=== PATIENT | male | born 1965 | race Caucasian/White ===

== ENCOUNTER 2017-01-18 15:33 | Emergency (ER) | payer BC ==
[~2017-01-18 15:33] MED LIST: ASPI325T PO; ASPI81TA82 PO; DILTSR120 PO; METO25TA6 PO; MULTCAP13 PO
[2017-01-18 15:40] VITALS: BP 136/86; PULSE 152; RESP 18; TEMP 98.3; O2SAT 96
[2017-01-18] MEDS ORDERED: ASPI-516 CHEW (15:40)
[2017-01-18] MEDS ORDERED: DILT240C44 PO (15:40)
[2017-01-18 15:45] VITALS: BP 120/87; PULSE 144; RESP 18; O2SAT 96
[2017-01-18] MEDS ORDERED: DILTIAZEM HCL 25 MG/5 ML VIAL IV ONE (15:45)
--- NOTE | 2017-01-18 15:46 | PD ---
HPI Chief Complaint: Cardiac Complaint Time Seen by Provider: 15:43 Travel History International Travel<30 days: No Contact w/Intl Traveler<30days: No Traveled to known affect area: No History of Present Illness HPI This 51-year-old male is complaining of palpitations. His palpitations started about 2 hours ago while he was in [place]. He has a history of paroxysmal atrial fibrillation and is on oral Cardizem. He says he took it yesterday around 9:00 at night. He is not having any chest pain. He is having palpitations. He is not short of breath. He has been having this for the past few years. He says he gets it every 6 months or so. He took an aspirin this afternoon PFSH Past Medical History Atrial Fibrillation: Yes Cancer: No Cardiovascular Problems: No Diminished Hearing: No Endocrine: No Gastrointestinal Disorders: Yes (REFLUX) GERD: Yes Genitourinary: No Immune Disorder: No Implanted Vascular Access Dvce: No Musculoskeletal: No Neurologic: No Psychiatric: No Reproductive: No Respiratory: No Past Surgical History Surgical History: No Previous Surgery Other Surgery: No Social History Alcohol Use: No (2 BEERS A MONTH) Tobacco Use: No ( -2011) Substance Use: No Allergies-Medications (Allergen,Severity, Reaction): Coded Allergies: shellfish derived (Unverified Allergy, Intermediate, VOMITING, 01/18/17) Reported Meds & Prescriptions Reported Meds & Active Scripts Active Reported Aspirin 81 Mg Chew 81 Mg CHEW DAILY Diltiazem CD 24 HR 240 Mg Caper 240 Mg PO DAILY Review of Systems General / Constitutional: No: Fever, Chills Eyes: No: Diploplia HENT: No: Headaches Cardiovascular: Positive: Palpitations, Irregular Rhythm, Tachycardia, No: Chest Pain or Discomfort Respiratory: No: Cough, Shortness of Breath Gastrointestinal: No: Vomiting, Diarrhea Genitourinary: No: Urgency Musculoskeletal: No: Myalgias, Arthralgias Neurologic: No: Weakness, Dizziness Physical Exam Narrative GENERAL: [-] SKIN: Focused skin assessment warm/dry. HEAD: Atraumatic. Normocephalic. EYES: Pupils equal and round. No scleral icterus. No injection or drainage. ENT: No nasal bleeding or discharge. Mucous membranes pink and moist. NECK: Trachea midline. No JVD. CARDIOVASCULAR: Rapid irregular rate and rhythm. No murmur appreciated. RESPIRATORY: No accessory muscle use. Clear to auscultation. Breath sounds equal bilaterally. GASTROINTESTINAL: Abdomen soft, non-tender, nondistended. Hepatic and splenic margins not palpable. MUSCULOSKELETAL: No obvious deformities. No clubbing. No cyanosis. No edema. NEUROLOGICAL: Awake and alert. No obvious cranial nerve deficits. Motor grossly within normal limits. Normal speech. PSYCHIATRIC: Appropriate mood and affect; insight and judgment normal. Data Data Last Documented VS Vital Signs Date Time Temp Pulse Resp B/P (MAP) Pulse Ox O2 Delivery O2 Flow Rate FiO2 01/18/17 15:53 88 20 96 Room Air 01/18/17 15:40 98.3 Orders Orders Complete Blood Count With Diff (01/18/17 15:44) Basic Metabolic Panel (Bmp) (01/18/17 15:44) Troponin I (01/18/17 15:44) Magnesium (Mg) (01/18/17 15:44) Thyroid Stimulating Hormone (01/18/17 15:44) Diltiazem Inj (Cardizem Inj) (01/18/17 15:45) Labs Laboratory Tests Test 01/18/17 15:41 [facility] Medical Decision Making Medical Screen Exam Complete: Yes Emergency Medical Condition: Yes Medical Record Reviewed: Yes Differential Diagnosis Differential includes paroxysmal A. fib, SVT Narrative Course EKG shows atrial fibrillation that ischemic abnormality. He was given Cardizem with just transient responsive heart rate Diagnosis Primary Impression: Paroxysmal atrial fibrillation Shabbir Hercules MD Jan 18, 2017 15:46
[2017-01-18 15:53] VITALS: PULSE 88; RESP 20; O2SAT 96
[2017-01-18 16:15] VITALS: BP 138/72; PULSE 127; RESP 20; O2SAT 96
[2017-01-18 16:20] LABS: AUTOMATED NEUTROPHIL # 6.3 TH/MM3 (1.8-7.7); BASOPHIL % 0.4 % (0.0-2.0); EOSINOPHIL # 0.3 TH/MM3 (0-0.4); HEMATOCRIT 45.6 % (39.0-51.0); HEMO FLAGS DIFF FINAL; LYMPH % 18.4 % (9.0-44.0); LYMPHOCYTE # 1.7 TH/MM3 (1.0-4.8); MEAN CELL VOLUME 89.2 FL (80.0-100.0); MEAN CORPUSCULAR HEMOGLOBIN 29.5 PG (27.0-34.0); MEAN CORPUSCULAR HGB CONC 33.1 % (32.0-36.0); MONO % 10.3 % (0.0-8.0); NEUT % 67.9 % (16.0-70.0); PLATELET COUNT 243 TH/MM3 (150-450); RED BLOOD COUNT 5.11 MIL/MM3 (4.50-5.90); RED CELL DISTRIBUTION WIDTH 12.7 % (11.6-17.2); WHITE BLOOD COUNT 9.3 TH/MM3 (4.0-11.0)
--- NOTE | 2017-01-18 16:22 | PD ---
Physical Exam Narrative Patient was seen by ED physician and signed out to me. Data Data Last Documented VS Vital Signs Date Time Temp Pulse Resp B/P (MAP) Pulse Ox O2 Delivery O2 Flow Rate FiO2 01/18/17 16:15 127 20 138/72 (94) 96 Room Air 01/18/17 15:40 98.3 Orders Orders Complete Blood Count With Diff (01/18/17 15:44) Basic Metabolic Panel (Bmp) (01/18/17 15:44) Troponin I (01/18/17 15:44) Magnesium (Mg) (01/18/17 15:44) Thyroid Stimulating Hormone (01/18/17 15:44) Diltiazem Inj (Cardizem Inj) (01/18/17 15:45) Diltiazem Cd (Cardizem Cd) (01/18/17 16:30) Labs Laboratory Tests Test 01/18/17 15:41 White Blood Count 9.3 TH/MM3 Red Blood Count 5.11 MIL/MM3 Hemoglobin 15.1 GM/DL Hematocrit 45.6 % Mean Corpuscular Volume 89.2 FL Mean Corpuscular Hemoglobin 29.5 PG Mean Corpuscular Hemoglobin Concent 33.1 % Red Cell Distribution Width 12.7 % Platelet Count 243 TH/MM3 Mean Platelet Volume 8.9 FL Neutrophils (%) (Auto) 67.9 % Lymphocytes (%) (Auto) 18.4 % Monocytes (%) (Auto) 10.3 % Eosinophils (%) (Auto) 3.0 % Basophils (%) (Auto) 0.4 % Neutrophils # (Auto) 6.3 TH/MM3 Lymphocytes # (Auto) 1.7 TH/MM3 Monocytes # (Auto) 1.0 TH/MM3 Eosinophils # (Auto) 0.3 TH/MM3 Basophils # (Auto) 0.0 TH/MM3 CBC Comment DIFF FINAL Differential Comment Blood Urea Nitrogen 17 MG/DL Creatinine 0.91 MG/DL Random Glucose 107 MG/DL Calcium Level 8.8 MG/DL Magnesium Level 2.4 MG/DL Sodium Level 141 MEQ/L Potassium Level 3.9 MEQ/L Chloride Level 108 MEQ/L Carbon Dioxide Level 23.4 MEQ/L Anion Gap 10 MEQ/L Estimat Glomerular Filtration Rate 88 ML/MIN Troponin I LESS THAN 0.02 NG/ML Thyroid Stimulating Hormone 3rd Gen 3.540 uIU/ML MDM Supervised Visit with LILO: No Interpretation(s) 17 11 PM. CBC within normal limit. CMP within normal limit. Cardiac enzymes are normal. TSH normal. Differential Diagnosis Differential diagnosis including A. fib with RVR, PACs, PVCs, tachycardia. Narrative Course 51-year-old male with history of fibrillation and on Cardizem CD 240 mg daily and aspirin 81 mg daily. Patient was given Cardizem 20 mg IV in the ED which slowdown his heart rate. I spoke with Dr. Busch , patient's electrician bus. Advised increase Cardizem to 360 mg daily. Cardizem CD 120 mg by mouth given now. 17 11 PM. Patient converted to sinus rhythm. Patient will be discharged to follow-up with electrician bus. Diagnosis Primary Impression: Atrial fibrillation with RVR Patient Instructions: General Instructions Additional Instruction: Increase Cardizem to 360 mg daily. Follow-up with electrician bus. Return as needed. Med/Other Pt SpecificInfo: Prescription(s) given, Existing Med Changed Scripts Diltiazem CD 24 HR (Cardizem CD 24 HR) 120 Mg Caper 120 MG PO DAILY, #30 CAP 0 Refills Prov: Sly Wellington MD 01/18/17 Disposition: 01 DISCHARGE HOME Condition: Stable Sly Wellington MD Jan 18, 2017 16:22
[2017-01-18] MEDS ORDERED: DILTIAZEM-CD 120 MG CAP ER PO ONE (16:30)
[2017-01-18 16:31] LABS: CHLORIDE 108 MEQ/L (98-107); POTASSIUM 3.9 MEQ/L (3.5-5.1); SODIUM (NA) 141 MEQ/L (136-145)
[2017-01-18 16:36] LABS: ANION GAP 10 MEQ/L (5-15); BICARBONATE 23.4 MEQ/L (21.0-32.0); BLOOD UREA NITROGEN 17 MG/DL (7-18); MAGNESIUM 2.4 MG/DL (1.5-2.5)
[2017-01-18 16:39] LABS: GLOMERULAR FILTRATION RATE 88 ML/MIN (>89)
[2017-01-18] MEDS ORDERED: CARD120C4 PO (17:13)
[2017-01-18 17:27] VITALS: BP 146/96; PULSE 92; RESP 18; O2SAT 97
--- NOTE | 2017-01-19 11:49 | EKG ---
Date Performed: 01/18/2017 Time Performed: 15:38:54 PTAGE: 51 years EKG: ATRIAL FIBRILLATION WITH RAPID VENTRICULAR RESPONSE NONSPECIFIC ST & T-WAVE ABNORMALITY ABN ORMAL RHYTHM ECG Compared to prior tracing no significant change PREVIOUS TRACING : 05/29/2013 14.11 DOCTOR: Keith Iyer Interpretating Date/Time 01/19/2017 11:48:58
== END 2017-01-18 17:29 | disposition home or self-care (01) ==
LOC: PHED 15:33
DX: I48.0 Paroxysmal atrial fibrillation (principal); Z87.891 Personal history of nicotine dependence
CPT/HCPCS: 80048; 83735; 84443; 84484; 85025; 93005; 96374

== ENCOUNTER 2017-02-13 12:02 | Emergency (ER) | payer BC ==
[~2017-02-13] VITALS: Ht 188 cm; Wt 121.6 kg
[~2017-02-13 12:02] MED LIST changes: +ASPI-516 CHEW; -ASPI325T PO; -ASPI81TA82 PO; +CARD120C4 PO; +DILT240C44 PO; -DILTSR120 PO; -METO25TA6 PO; -MULTCAP13 PO
[2017-02-13 12:05] VITALS: BP 158/97; PULSE 139; RESP 20; TEMP 98; O2SAT 98
[2017-02-13 12:25] VITALS: BP 138/96; PULSE 129; RESP 18; O2SAT 98
--- NOTE | 2017-02-13 12:26 | PD ---
HPI Chief Complaint: Cardiac Complaint Time Seen by Provider: 12:22 Travel History International Travel<30 days: No Contact w/Intl Traveler<30days: No Traveled to known affect area: No History of Present Illness HPI Patient presents with acute uncontrolled atrial fibrillation. States he was sitting and talking to his on his heart rate started racing. History of atrial fibrillation. Compliant with Cardizem 120 mg extended release daily at bedtime and aspirin for anticoagulation. Denies any chest pain shortness of breath urinary or bowel symptoms. Followed by cardiology. Considering ablation. PFSH Past Medical History Atrial Fibrillation: Yes Cancer: No Cardiovascular Problems: Yes Diminished Hearing: No Endocrine: No Gastrointestinal Disorders: Yes (REFLUX) GERD: Yes Genitourinary: No Immune Disorder: No Implanted Vascular Access Dvce: No Musculoskeletal: No Neurologic: No Psychiatric: No Reproductive: No Respiratory: No Influenza Vaccination: No Past Surgical History Other Surgery: No Social History Alcohol Use: No (2 BEERS A MONTH) Tobacco Use: No ( -2011) Substance Use: No Allergies-Medications (Allergen,Severity, Reaction): Coded Allergies: shellfish derived (Unverified Allergy, Intermediate, VOMITING, 02/13/17) Reported Meds & Prescriptions Reported Meds & Active Scripts Active Cardizem CD 24 HR (Diltiazem CD 24 HR) 120 Mg Caper 120 Mg PO DAILY Reported Aspirin 81 Mg Chew 81 Mg CHEW DAILY Diltiazem CD 24 HR 240 Mg Caper 240 Mg PO DAILY Review of Systems General / Constitutional: No: Fever Eyes: No: Visual changes HENT: No: Headaches Cardiovascular: Positive: Irregular Rhythm, Tachycardia, No: Chest Pain or Discomfort Respiratory: No: Shortness of Breath Gastrointestinal: No: Abdominal Pain Genitourinary: No: Dysuria Musculoskeletal: No: Pain Skin: No Rash Neurologic: No: Weakness Psychiatric: No: Depression Endocrine: No: Polydipsia Hematologic/Lymphatic: No: Easy Bruising Physical Exam Narrative GENERAL: Well-nourished, well-developed patient. SKIN: Focused skin assessment warm/dry. HEAD: Normocephalic. EYES: No scleral icterus. No injection or drainage. NECK: Supple, trachea midline. No JVD or lymphadenopathy. CARDIOVASCULAR: Irregular rate and rhythm without murmurs, gallops, or rubs. RESPIRATORY: Breath sounds equal bilaterally. No accessory muscle use. GASTROINTESTINAL: Abdomen soft, non-tender, nondistended. MUSCULOSKELETAL: No cyanosis, or edema. BACK: Nontender without obvious deformity. No CVA tenderness. Data Data Last Documented VS Vital Signs Date Time Temp Pulse Resp B/P (MAP) Pulse Ox O2 Delivery O2 Flow Rate FiO2 02/13/17 13:00 75 18 144/86 (105) 98 Room Air 02/13/17 12:05 98.0 Orders Orders Diltiazem Inj (Cardizem Inj) (02/13/17 12:30) [facility] Medical Decision Making Medical Screen Exam Complete: Yes Emergency Medical Condition: Yes Differential Diagnosis Uncontrolled atrial fibrillation relation, acute coronary syndrome, medication noncompliance Narrative Course Assessment and plan discussed with patient and at bedside. EKG reveals atrial fibrillation with RVR rate 138. Patient given diltiazem with improvement of heart rate. Chads score of 1. Patient converted with diltiazem injection. Repeat EKG revealed sinus rhythm rate of 67. Blood pressure is still elevated. Patient reports he is unable to stand and a higher dose of Cardizem. States he is taking metoprolol the past but it has made him feel a bit sluggish. Diagnosis Primary Impression: Paroxysmal atrial fibrillation Additional Instructions: Encouraged keep regular scheduled appointment with cardiology. Encouraged to avoid excessive caffeine or high energy drinks. Encouraged to follow-up with PCP. Encouraged to return to emergency with any onset of new symptoms. Med/Other Pt SpecificInfo: Prescription(s) given Scripts Metoprolol Tartrate (Metoprolol Tartrate) 25 Mg Tab 25 MG PO BID for A. fib, #30 TAB 0 Refills Prov: Khanh Rosebnaum MD 02/13/17 Disposition: 01 DISCHARGE HOME Condition: Good Khanh Rosenbaum MD Feb 13, 2017 12:25
[2017-02-13] MEDS ORDERED: DILTIAZEM HCL 25 MG/5 ML VIAL IV ONE (12:30)
[2017-02-13 13:00] VITALS: BP 144/86; PULSE 75; RESP 18; O2SAT 98
[2017-02-13] MEDS ORDERED: METO25TA3 PO (13:29)
[2017-02-13 13:42] VITALS: BP 156/86
--- NOTE | 2017-02-14 12:54 | EKG ---
Date Performed: 02/13/2017 Time Performed: 12:08:21 PTAGE: 51 years EKG: ATRIAL FIBRILLATION WITH RAPID VENTRICULAR RESPONSE NONSPECIFIC ST & T-WAVE ABNORMALITY ABN ORMAL RHYTHM ECG Since PREVIOUS TRACING , no significant change noted PREVIOUS TRACING 01/18/2017 15.38.54 DOCTOR: Juan Weller Interpretating Date/Time 02/14/2017 12:53:10
--- NOTE | 2017-02-14 12:55 | EKG ---
Date Performed: 02/13/2017 Time Performed: 12:52:40 PTAGE: 51 years EKG: Sinus rhythm NORMAL ECG Compared to PREVIOUS TRACING , there is a rhythm change from atrial fibrillation to sinus rhythm. ST- T changes have improved. PREVIOUS TRACIN02/13/2017 12.08.21 DOCTOR: Juan Weller Interpretating Date/Time 02/14/2017 12:54:37
== END 2017-02-13 14:03 | disposition home or self-care (01) ==
LOC: PHED 12:02
DX: I48.0 Paroxysmal atrial fibrillation (principal); K21.9 Gastro-esophageal reflux disease without esophagitis; Z87.891 Personal history of nicotine dependence
CPT/HCPCS: 93005; 96372

== ENCOUNTER 2017-04-15 21:08 | Emergency (ER) | payer BC ==
[2017-04-15] VITALS (7 sets, daily range): BP systolic 122–160; BP diastolic 66–93; PULSE 70–114; RESP 18; TEMP 98.8; O2SAT 98
[~2017-04-15] VITALS: Ht 188 cm; Wt 124.3 kg
[~2017-04-15 21:08] MED LIST changes: +METO25TA3 PO
[2017-04-15] MEDS ORDERED: MULT400T PO (21:21)
[2017-04-15] MEDS ORDERED: APIX5TAB PO (21:21)
[2017-04-15] MEDS ORDERED: DILTIAZEM HCL 25 MG/5 ML VIAL IV PUSH ONE (21:30)
[2017-04-15] MEDS ORDERED: SODIUM CHLORIDE 0.9% FLUSH 10 ML FLUSH IVF PRN (21:30)
[2017-04-15] MEDS ORDERED: DILTIAZEM INJ 125 MG in SODIUM CHLORIDE 0.9% INJ 100 ML IV PRN (21:30)
[2017-04-15] MEDS ORDERED: SODIUM CHLORIDE 0.9% FLUSH 10 ML FLUSH IV FLUSH PRN (21:30)
--- NOTE | 2017-04-15 21:33 | PD ---
HPI Chief Complaint: Cardiac Complaint Time Seen by Provider: 21:22 Travel History International Travel<30 days: No Contact w/Intl Traveler<30days: No Traveled to known affect area: No History of Present Illness HPI The patient is a 52-year-old male that has a history of chronic atrial fibrillation and who had an ablation done by Dr. Herrera 3 weeks ago. He states when he drinks ice water or ice cold milk this can knocking back in atrial fibrillation. He was warned by Dr. Weldon about this. He drank some ice cold milk tonight and 10 seconds later he developed the atrial fibrillation. He denies any chest pain or shortness of breath. He has had multiple recurrence of atrial fibrillation since the ablation and he was told this is to be expected until the scarring is complete in about 3 months from the ablation. PFSH Past Medical History Hx Anticoagulant Therapy: Yes Atrial Fibrillation: Yes Cancer: No Cardiovascular Problems: Yes Diminished Hearing: No Endocrine: No Gastrointestinal Disorders: Yes (REFLUX) GERD: Yes Genitourinary: No Immune Disorder: No Implanted Vascular Access Dvce: No Musculoskeletal: No Neurologic: No Psychiatric: No Reproductive: No Respiratory: No Past Surgical History Other Surgery: No Social History Alcohol Use: No (2 BEERS A MONTH) Tobacco Use: No ( -2011) Substance Use: No Allergies-Medications (Allergen,Severity, Reaction): Coded Allergies: shellfish derived (Unverified Allergy, Intermediate, VOMITING, 04/15/17) Reported Meds & Prescriptions Reported Meds & Active Scripts Active Reported Eliquis (Apixaban) 5 Mg Tab 5 Mg PO BID Multaq (Dronedarone) 400 Mg Tab 400 Mg PO BID Review of Systems Except as stated in HPI: all other systems reviewed are Neg Physical Exam Narrative GENERAL: The patient is alert, oriented 3 in no apparent distress. His pulse is 114 and blood pressure 160/93 but the rest the vital signs are normal. SKIN: Focused skin assessment warm/dry. HEAD: Atraumatic. Normocephalic. EYES: Pupils equal and round. No scleral icterus. No injection or drainage. ENT: No nasal bleeding or discharge. Mucous membranes pink and moist. NECK: Trachea midline. No JVD. CARDIOVASCULAR: Atrial fibrillation with RVR and rate of about 120. No murmur appreciated. RESPIRATORY: No accessory muscle use. Clear to auscultation. Breath sounds equal bilaterally. GASTROINTESTINAL: Abdomen soft, non-tender, nondistended. Hepatic and splenic margins not palpable. No guarding or rebound is present. MUSCULOSKELETAL: No obvious deformities. No clubbing. No cyanosis. No edema. NEUROLOGICAL: Awake and alert. No obvious cranial nerve deficits. Motor grossly within normal limits. Normal speech. PSYCHIATRIC: Appropriate mood and affect; insight and judgment normal. Data Data Last Documented VS Vital Signs Date Time Temp Pulse Resp B/P (MAP) Pulse Ox O2 Delivery O2 Flow Rate FiO2 04/15/17 22:05 77 18 128/83 (98) 98 Room Air 04/15/17 21:26 98.8 Orders Orders Ecg Monitoring (04/15/17 21:22) Blood Pressure (04/15/17 21:22) Iv Access Insert/Monitor (04/15/17:22) Oximetry (04/15/17 21:22) Vital Signs (04/15/17 21:22) Diltiazem Inj (Cardizem Inj) (04/15/17 21:30) Sodium Chloride 0.9% Flush (Ns Flush) (04/15/17 21:30) Electrocardiogram (04/15/17 21:23) B-Type Natriuretic Peptide (04/15/17 21:23) Complete Blood Count With Diff (04/15/17 21:23) Comprehensive Metabolic Panel (04/15/17 21:23) Magnesium (Mg) (04/15/17 21:23) Prothrombin Time / Inr (Pt) (04/15/17 21:23) Act Partial Throm Time (Ptt) (04/15/17 21:23) Troponin I (04/15/17 21:23) Bilateral Bp Monitoring (04/15/17 21:23) Oxygen Administration (04/15/17 21:23) Sodium Chloride 0.9% Flush (Ns Flush) (04/15/17 21:30) Electrocardiogram (04/15/17 ) Labs Laboratory Tests Test 04/15/17 21:45 White Blood Count 8.8 TH/MM3 Red Blood Count 4.68 MIL/MM3 Hemoglobin 14.0 GM/DL Hematocrit 41.9 % Mean Corpuscular Volume 89.6 FL Mean Corpuscular Hemoglobin 30.0 PG Mean Corpuscular Hemoglobin Concent 33.5 % Red Cell Distribution Width 12.6 % Platelet Count 259 TH/MM3 Mean Platelet Volume 8.6 FL Neutrophils (%) (Auto) 53.6 % Lymphocytes (%) (Auto) 35.8 % Monocytes (%) (Auto) 6.0 % Eosinophils (%) (Auto) 3.7 % Basophils (%) (Auto) 0.9 % Neutrophils # (Auto) 4.7 TH/MM3 Lymphocytes # (Auto) 3.2 TH/MM3 Monocytes # (Auto) 0.5 TH/MM3 Eosinophils # (Auto) 0.3 TH/MM3 Basophils # (Auto) 0.1 TH/MM3 CBC Comment DIFF FINAL Differential Comment Prothrombin Time 10.5 SEC Prothromb Time International Ratio 1.0 RATIO Activated Partial Thromboplast Time 28.7 SEC Blood Urea Nitrogen 18 MG/DL Creatinine 0.93 MG/DL Random Glucose 134 MG/DL Total Protein 7.3 GM/DL Albumin 3.5 GM/DL Calcium Level 8.3 MG/DL Magnesium Level 2.2 MG/DL Alkaline Phosphatase 60 U/L Aspartate Amino Transf (AST/SGOT) 12 U/L Alanine Aminotransferase (ALT/SGPT) 19 U/L Total Bilirubin 0.2 MG/DL Sodium Level 140 MEQ/L Potassium Level 3.5 MEQ/L Chloride Level 109 MEQ/L Carbon Dioxide Level 23.2 MEQ/L Anion Gap 8 MEQ/L Estimat Glomerular Filtration Rate 86 ML/MIN Troponin I LESS THAN 0.02 NG/ML B-Type Natriuretic Peptide 47 PG/ML MDM Medical Decision Making Medical Screen Exam Complete: Yes Emergency Medical Condition: Yes Medical Record Reviewed: Yes Interpretation(s) The initial EKG shows atrial fibrillation with RVR and a rate of [address] elevation or depression. Repeat EKG done at 30/03/49 reveals sinus rhythm with rate of 62. The complete metabolic profile shows a GFR of 86, calcium 8.3 and is otherwise normal. The magnesium level is 2.2 and the troponin I is normal. The coagulation profile is normal and the CBC is normal. Differential Diagnosis Atrial fibrillation with RVR, acute coronary syndrome, electrolyte disorder, hypomagnesemia Narrative Course Is now 1055 and the patient has converted to normal sinus rhythm. He will follow-up with his staff weapons officer. At this time there is no evidence of any cardiac damage and it is felt he can be safely discharged home. He will refrain from drinking iced beverages. The Conversion happened when he was urinating. Diagnosis Primary Impression: Atrial fibrillation with RVR Additional Instructions: As you already know, avoid ice drinks. Give Dr. Herrera a call about what happened today. Med/Other Pt SpecificInfo: No Change to Meds Disposition: 01 DISCHARGE HOME Condition: Vini Calderón MD Apr 15, 2017 21:33
[2017-04-15 21:56] LABS: AUTOMATED NEUTROPHIL # 4.7 TH/MM3 (1.8-7.7); BASOPHIL # 0.1 TH/MM3 (0-0.2); BASOPHIL % 0.9 % (0.0-2.0); EOSINOPHIL # 0.3 TH/MM3 (0-0.4); EOSINOPHIL % 3.7 % (0.0-4.0); HEMATOCRIT 41.9 % (39.0-51.0); LYMPH % 35.8 % (9.0-44.0); LYMPHOCYTE # 3.2 TH/MM3 (1.0-4.8); MEAN CELL VOLUME 89.6 FL (80.0-100.0); MEAN CORPUSCULAR HGB CONC 33.5 % (32.0-36.0); MEAN PLATELET VOLUME 8.6 FL (7.0-11.0); MONOCYTE # 0.5 TH/MM3 (0-0.9); NEUT % 53.6 % (16.0-70.0); PLATELET COUNT 259 TH/MM3 (150-450); RED BLOOD COUNT 4.68 MIL/MM3 (4.50-5.90); RED CELL DISTRIBUTION WIDTH 12.6 % (11.6-17.2); WHITE BLOOD COUNT 8.8 TH/MM3 (4.0-11.0)
[2017-04-15 22:14] LABS: PROTHROMBIN TIME - PATIENT 10.5 SEC (9.8-11.6)
[2017-04-15 22:25] LABS: CHLORIDE 109 MEQ/L (98-107); SODIUM (NA) 140 MEQ/L (136-145)
[2017-04-15 22:28] LABS: CALCIUM 8.3 MG/DL (8.5-10.1)
[2017-04-15 22:29] LABS: ALBUMIN 3.5 GM/DL (3.4-5.0); BICARBONATE 23.2 MEQ/L (21.0-32.0); BLOOD UREA NITROGEN 18 MG/DL (7-18); GLUCOSE,RANDOM 134 MG/DL (74-106); MAGNESIUM 2.2 MG/DL (1.5-2.5)
[2017-04-15 22:32] LABS: ALT (GPT) 19 U/L (12-78); AST (GOT) 12 U/L (15-37); CREATININE 0.93 MG/DL (0.60-1.30); GLOMERULAR FILTRATION RATE 86 ML/MIN (>89)
[2017-04-15 22:34] LABS: TOTAL BILIRUBIN ADULT 0.2 MG/DL (0.2-1.0); TOTAL PROTEIN 7.3 GM/DL (6.4-8.2)
[2017-04-15 22:35] LABS: ALKALINE PHOSPHATASE 60 U/L (45-117)
[2017-04-15 22:37] LABS: TROPONIN I LESS THAN 0.02 NG/ML (0.02-0.05)
--- NOTE | 2017-04-15 23:32 | EKG ---
Date Performed: 04/15/2017 Time Performed: 21:19:25 PTAGE: 52 years EKG: ATRIAL FIBRILLATION WITH RAPID VENTRICULAR RESPONSE NONSPECIFIC ST & T-WAVE ABNORMALITY ABN ORMAL RHYTHM ECG INTERPRETATION BASED ON A DEFAULT AGE OF 41 YEARS PREVIOUS TRACING : 02/13/2017 12.52 Compared to prior tracing, now in AFib with RVR with non-specific ST/T wave changes DOCTOR: Baltazar Lepe Interpretating Date/Time 04/15/2017 23:32:04
--- NOTE | 2017-04-17 22:46 | EKG ---
Date Performed: 04/15/2017 Time Performed: 22:52:30 PTAGE: 52 years EKG: Sinus rhythm MODERATE INTRAVENTRICULAR CONDUCTION DELAY BORDERLINE ECG WARNING: DATA QUALITY MAY AFFECT INTERPRET ATION INTERPRETATION BASED ON A DEFAULT AGE OF 40 YEARS PREVIOUS TRACING : 04/15/2017 21.19 Compared to prior tracing, previously AFib DOCTOR: Baltazar Lepe Interpretating Date/Time 04/17/2017 22:44:43
== END 2017-04-15 23:44 | disposition home or self-care (01) ==
LOC: PHED 21:08
DX: I48.0 Paroxysmal atrial fibrillation (principal); K21.9 Gastro-esophageal reflux disease without esophagitis; Z87.891 Personal history of nicotine dependence; Z79.01 Long term (current) use of anticoagulants; Z79.899 Other long term (current) drug therapy; Z98.890 Other specified postprocedural states
CPT/HCPCS: 80053; 83735; 83880; 84484; 85025; 85610; 85730; 93005; 96374

== ENCOUNTER 2017-06-09 08:59 | Emergency (ER) | payer BC ==
[~2017-06-09] VITALS: Ht 188 cm; Wt 126.0 kg
[~2017-06-09 08:59] MED LIST changes: +APIX5TAB PO; -ASPI-516 CHEW; -CARD120C4 PO; -DILT240C44 PO; -METO25TA3 PO; +MULT400T PO
[2017-06-09 09:15] VITALS: RESP 16; O2SAT 97
[2017-06-09] MEDS ORDERED: SODIUM CHLORIDE 0.9% FLUSH 10 ML FLUSH IVF PRN (09:15)
[2017-06-09 09:29] VITALS: BP 155/66; PULSE 138; RESP 16; TEMP 97.8; O2SAT 97
[2017-06-09 09:32] LABS: AUTOMATED NEUTROPHIL # 4.5 TH/MM3 (1.8-7.7); BASOPHIL # 0.1 TH/MM3 (0-0.2); BASOPHIL % 0.7 % (0.0-2.0); EOSINOPHIL # 0.2 TH/MM3 (0-0.4); EOSINOPHIL % 2.6 % (0.0-4.0); HEMATOCRIT 43.4 % (39.0-51.0); LYMPH % 29.6 % (9.0-44.0); LYMPHOCYTE # 2.2 TH/MM3 (1.0-4.8); MEAN CELL VOLUME 89.1 FL (80.0-100.0); MEAN CORPUSCULAR HEMOGLOBIN 30.7 PG (27.0-34.0); MEAN CORPUSCULAR HGB CONC 34.5 % (32.0-36.0); MEAN PLATELET VOLUME 9.1 FL (7.0-11.0); MONO % 6.8 % (0.0-8.0); MONOCYTE # 0.5 TH/MM3 (0-0.9); NEUT % 60.3 % (16.0-70.0); PLATELET COUNT 268 TH/MM3 (150-450); RED BLOOD COUNT 4.87 MIL/MM3 (4.50-5.90); RED CELL DISTRIBUTION WIDTH 12.9 % (11.6-17.2); WHITE BLOOD COUNT 7.5 TH/MM3 (4.0-11.0)
--- NOTE | 2017-06-09 09:35 | PD ---
HPI Chief Complaint: Cardiac Complaint Time Seen by Provider: 09:09 Travel History International Travel<30 days: No Contact w/Intl Traveler<30days: No History of Present Illness HPI 52-year-old male arrives with a complaint of palpitations consistent with atrial fibrillation. The patient underwent ablation approximately 2 months prior. He has had A. fib for years. He takes Xarelto. He takes no antiarrhythmic agent. He reports one episode of atrial fibrillation occurred after the ablation and seems to have been related to ingestion of ice cold drank. The patient had another cold drank this morning for the first time since the last episode which was followed by A. fib symptoms. He has no chest pain or shortness of breath. Onset sudden. Timing is resolved. Symptoms were constant until that time. No other variation in the patient's normal state of physical health. PFSH Past Medical History Hx Anticoagulant Therapy: Yes Atrial Fibrillation: Yes Cancer: No Cardiovascular Problems: Yes Diminished Hearing: No Endocrine: No Gastrointestinal Disorders: Yes (REFLUX) GERD: Yes Genitourinary: No Immune Disorder: No Implanted Vascular Access Dvce: No Musculoskeletal: No Neurologic: No Psychiatric: No Reproductive: No Respiratory: No Past Surgical History Other Surgery: Yes (ablation for afib) Social History Alcohol Use: No (2 BEERS A MONTH) Tobacco Use: No ( -2011) Substance Use: No Allergies-Medications (Allergen,Severity, Reaction): Coded Allergies: shellfish derived (Unverified Allergy, Intermediate, VOMITING, 06/09/17) Reported Meds & Prescriptions Reported Meds & Active Scripts Active Reported Xarelto (Rivaroxaban) 20 Mg Tab 20 Mg PO HS Review of Systems Except as stated in HPI: all other systems reviewed are Neg General / Constitutional: No: Fever Physical Exam Narrative GENERAL: 52-year-old male well-nourished well-developed no acute distress SKIN: Warm and dry. HEAD: Atraumatic. Normocephalic. EYES: Pupils equal and round. No scleral icterus. No injection or drainage. ENT: No nasal bleeding or discharge. Mucous membranes pink and moist. NECK: Trachea midline. No JVD. CARDIOVASCULAR: The rhythm is regular at about 80 beats a minute. Upon entering the room the rhythm was somewhat irregular also approximately 70-80 beats a minute. RESPIRATORY: No accessory muscle use. Clear to auscultation. Breath sounds equal bilaterally. GASTROINTESTINAL: Abdomen soft, non-tender, nondistended. Hepatic and splenic margins not palpable. MUSCULOSKELETAL: Extremities without clubbing, cyanosis, or edema. No obvious deformities. NEUROLOGICAL: Awake and alert. No obvious cranial nerve deficits. Motor grossly within normal limits. Five out of 5 muscle strength in the arms and legs. Normal speech. PSYCHIATRIC: Appropriate mood and affect; insight and judgment normal. Data Data Last Documented VS Vital Signs Date Time Temp Pulse Resp B/P (MAP) Pulse Ox O2 Delivery O2 Flow Rate FiO2 06/09/17 10:00 84 16 99 Room Air 06/09/17 10:00 132/85 (101) 06/09/17 09:29 97.8 Orders Orders Electrocardiogram (06/09/17 09:09) Basic Metabolic Panel (Bmp) (06/09/17 09:09) Complete Blood Count With Diff (06/09/17 09:09) Prothrombin Time / Inr (Pt) (06/09/17 09:09) Act Partial Throm Time (Ptt) (06/09/17 09:09) Ecg Monitoring (06/09/17 09:09) Iv Access Insert/Monitor (06/09/17 09:09) Oximetry (06/09/17 09:09) Sodium Chloride 0.9% Flush (Ns Flush) (06/09/17 09:15) Sodium Chlor 0.9% 1000 Ml Inj (Ns 1000 M (06/09/17 10:45) Ed Discharge Order (06/09/17 10:38) Labs Laboratory Tests Test 06/09/17 09:25 White Blood Count 7.5 TH/MM3 Red Blood Count 4.87 MIL/MM3 Hemoglobin 15.0 GM/DL Hematocrit 43.4 % Mean Corpuscular Volume 89.1 FL Mean Corpuscular Hemoglobin 30.7 PG Mean Corpuscular Hemoglobin Concent 34.5 % Red Cell Distribution Width 12.9 % Platelet Count 268 TH/MM3 Mean Platelet Volume 9.1 FL Neutrophils (%) (Auto) 60.3 % Lymphocytes (%) (Auto) 29.6 % Monocytes (%) (Auto) 6.8 % Eosinophils (%) (Auto) 2.6 % Basophils (%) (Auto) 0.7 % Neutrophils # (Auto) 4.5 TH/MM3 Lymphocytes # (Auto) 2.2 TH/MM3 Monocytes # (Auto) 0.5 TH/MM3 Eosinophils # (Auto) 0.2 TH/MM3 Basophils # (Auto) 0.1 TH/MM3 CBC Comment DIFF FINAL Differential Comment Prothrombin Time 10.8 SEC Prothromb Time International Ratio 1.1 RATIO Activated Partial Thromboplast Time 29.0 SEC Blood Urea Nitrogen 29 MG/DL Creatinine 0.82 MG/DL Random Glucose 96 MG/DL Calcium Level 8.8 MG/DL Sodium Level 139 MEQ/L Potassium Level 4.1 MEQ/L Chloride Level 109 MEQ/L Carbon Dioxide Level 22.6 MEQ/L Anion Gap 7 MEQ/L Estimat Glomerular Filtration Rate 99 ML/MIN MDM Medical Decision Making Medical Screen Exam Complete: Yes Emergency Medical Condition: Yes Medical Record Reviewed: Yes Differential Diagnosis NSTEMI, unstable angina, coronary vasospasm, PE, PTX, aortic dissection, pericarditis, myocarditis, endocarditis, PNA, esophageal disease, aneurysm, musculoskeletal etiologies, anxiety, cocaine/sympathomimetic abuse Narrative Course CBC & BMP Diagram 06/09/17 09:25 Calcium Level 8.8 EKG shows A. fib with RVR and rate about 1:30 The patient converted to normal sinus rhythm about 1 minute after arriving to his room. He was also asymptomatic at that time. Recently mild prerenal azotemia. The patient received a liter saline has verbalized agreement to increased oral hydration over the next couple days. Follow-up with Dr. Weldon. Diagnosis Primary Impression: Atrial fibrillation with RVR Referrals: Angel Weldon MD 1 day Med/Other Pt SpecificInfo: Prescription(s) given Disposition: 01 DISCHARGE HOME Condition: Stable Sy Lepe MD June 09, 2017 09:35
[2017-06-09] MEDS ORDERED: XARE20TA PO (09:44)
[2017-06-09 09:46] LABS: INTERNATIONAL NORMALIZED RATIO 1.1 RATIO; PROTHROMBIN TIME - PATIENT 10.8 SEC (9.8-11.6)
[2017-06-09 10:00] VITALS: BP 132/85; PULSE 82; RESP 16
[2017-06-09 10:24] LABS: BICARBONATE 22.6 MEQ/L (21.0-32.0); CALCIUM 8.8 MG/DL (8.5-10.1)
[2017-06-09 10:28] LABS: CREATININE 0.82 MG/DL (0.60-1.30)
[2017-06-09] MEDS ORDERED: SODIUM CHLOR 0.9% 1000 ML INJ 1,000 ML IV ONE (10:45)
[2017-06-09 10:47] VITALS: BP 128/86
--- NOTE | 2017-06-09 12:38 | EKG ---
Date Performed: 06/09/2017 Time Performed: 09:05:13 PTAGE: 52 years EKG: ATRIAL FIBRILLATION WITH RAPID VENTRICULAR RESPONSE NONSPECIFIC ST & T-WAVE ABNORMALITY ABN ORMAL RHYTHM ECG PREVIOUS TRACING : 04/15/2017 22.52 Atrial fibrillation is new since the prior tracing. DOCTOR: Keith Iyer Interpretating Date/Time 06/09/2017 12:36:59
== END 2017-06-09 10:54 | disposition home or self-care (01) ==
LOC: PHED 08:59
DX: I48.91 Unspecified atrial fibrillation (principal); R94.31 Abnormal electrocardiogram [ECG] [EKG]; K21.9 Gastro-esophageal reflux disease without esophagitis; Z87.891 Personal history of nicotine dependence
CPT/HCPCS: 80048; 85025; 85610; 85730; 93005; 99284

== ENCOUNTER 2017-06-28 06:36 | Emergency (ER) | payer BC ==
[~2017-06-28] VITALS: Ht 188 cm; Wt 117.0 kg
[2017-06-28] VITALS (8 sets, daily range): BP systolic 85–167; BP diastolic 72–89; PULSE 78–149; RESP 14–20; TEMP 97.7; O2SAT 96–99
[~2017-06-28 06:36] MED LIST changes: -APIX5TAB PO; -MULT400T PO; +XARE20TA PO
[2017-06-28] MEDS ORDERED: ASPI-183 PO (06:59)
[2017-06-28] MEDS ORDERED: ASPIRIN 81 MG CHEW TAB PO ONE (07:00)
[2017-06-28] MEDS ORDERED: SODIUM CHLOR 0.9% 1000 ML INJ 1,000 ML IV ONE (07:00)
[2017-06-28] MEDS ORDERED: SODIUM CHLORIDE 0.9% FLUSH 10 ML FLUSH IVF PRN (07:00)
[2017-06-28] MEDS ORDERED: PANTOPRAZOLE SODIUM 40 MG VIAL IV PUSH ONE (07:00)
[2017-06-28] MEDS ORDERED: VERAPAMIL HCL 5 MG/2 ML VIAL IV PUSH ONE (07:00)
[2017-06-28 07:09] LABS: AUTOMATED NEUTROPHIL # 4.4 TH/MM3 (1.8-7.7); BASOPHIL # 0.1 TH/MM3 (0-0.2); BASOPHIL % 0.7 % (0.0-2.0); EOSINOPHIL # 0.3 TH/MM3 (0-0.4); EOSINOPHIL % 3.9 % (0.0-4.0); HEMOGLOBIN 14.6 GM/DL (13.0-17.0); LYMPH % 36.5 % (9.0-44.0); LYMPHOCYTE # 3.1 TH/MM3 (1.0-4.8); MEAN CELL VOLUME 89.6 FL (80.0-100.0); MEAN CORPUSCULAR HEMOGLOBIN 29.7 PG (27.0-34.0); MEAN CORPUSCULAR HGB CONC 33.2 % (32.0-36.0); MONO % 6.7 % (0.0-8.0); MONOCYTE # 0.6 TH/MM3 (0-0.9); NEUT % 52.2 % (16.0-70.0); PLATELET COUNT 251 TH/MM3 (150-450); RED BLOOD COUNT 4.91 MIL/MM3 (4.50-5.90); RED CELL DISTRIBUTION WIDTH 12.4 % (11.6-17.2); WHITE BLOOD COUNT 8.5 TH/MM3 (4.0-11.0)
[2017-06-28 07:10] LABS: CHLORIDE 111 MEQ/L (98-107); SODIUM (NA) 139 MEQ/L (136-145)
--- NOTE | 2017-06-28 07:11 | PD ---
HPI Chief Complaint: Chest Pain Time Seen by Provider: 06:49 Travel History International Travel<30 days: No Contact w/Intl Traveler<30days: No Traveled to known affect area: No History of Present Illness HPI 52-year-old male with history of atrial fibrillation status post ablation in March 2017 presents to the emergency department with indigestion and atrial fibrillation. Patient states symptoms began this morning about 5 AM. Patient states he felt himself going to a rapid heart rate and felt some tightness in his chest thereafter. No referred neck jaw back shoulder arm pain no nausea no vomiting no paresis no shortness of breath. Patient states he briefly was able to cough and his atrial fibrillation seemed to convert back into sinus rhythm and then he felt some regurgitation and had recurrence of atrial fibrillation which has been persistent since arrival to the emergency department. Patient did take aspirin 650 mg prior to arrival to the emergency department. Patient denies any dizziness lightheadedness near syncope or syncope. Patient denies any recent febrile illness. Patient does admit to drinking alcohol last evening. Patient does not smoke cigarettes. Patient states his pricing specialist is Dr. Chowdhury. Patient takes no medications. Patient ran out of his blood thinner Eliquis and takes no blood thinning agents at this time. Patient tried vagal maneuvers without effect. PFSH Past Medical History Narrative Medical Atrial fibrillation cardiac ablation GERD; no tobacco use; nursing notes reviewed Hx Anticoagulant Therapy: Yes Atrial Fibrillation: Yes Cancer: No Cardiac Catheterization: Yes Cardiovascular Problems: Yes (hx of a-fib) Diminished Hearing: No Endocrine: No Gastrointestinal Disorders: Yes (REFLUX) GERD: Yes Genitourinary: No Immune Disorder: No Implanted Vascular Access Dvce: No Musculoskeletal: No Neurologic: No Psychiatric: No Reproductive: No Respiratory: No Past Surgical History Cardiac Surgery: Yes (heart ablation 03/2017) Other Surgery: Yes (ablation for afib) Social History Alcohol Use: No (2 beers a week) Tobacco Use: No ( -2011 smoked for approx 30 yrs 2 02/09 ppd) Substance Use: No Allergies-Medications (Allergen,Severity, Reaction): Coded Allergies: shellfish derived (Unverified Allergy, Intermediate, VOMITING, 06/09/17) Reported Meds & Prescriptions Reported Meds & Active Scripts Active Reported Aspirin 325 Mg Tab 650 Mg PO ONCE Review of Systems Except as stated in HPI: all other systems reviewed are Neg Physical Exam Narrative GENERAL: Well-developed well-nourished male no acute distress no respiratory distress; GCS 15 SKIN: Warm and dry. HEAD: Normocephalic. EYES: No scleral icterus. No injection or drainage. NECK: Supple, trachea midline. No JVD or lymphadenopathy. CARDIOVASCULAR: Increased irregularly irregular rate and rhythm without murmurs , gallops, or rubs. RESPIRATORY: Breath sounds equal bilaterally. No accessory muscle use. GASTROINTESTINAL: Abdomen soft, non-tender, nondistended. MUSCULOSKELETAL: No cyanosis, or edema. Radial and dorsalis pedis pulses 2+ to palpation. BACK: Nontender without obvious deformity. No CVA tenderness. Data Data Last Documented VS Vital Signs Date Time Temp Pulse Resp B/P (MAP) Pulse Ox O2 Delivery O2 Flow Rate FiO2 06/28/17 07:01 136 20 127/72 (90) 98 06/28/17 06:52 Room Air 06/28/17 06:46 97.7 Orders Orders Electrocardiogram (06/28/17 06:49) Basic Metabolic Panel (Bmp) (06/28/17 06:49) Ckmb (Isoenzyme) Profile (06/28/17 06:49) Complete Blood Count With Diff (06/28/17 06:49) Magnesium (Mg) (06/28/17 06:49) Prothrombin Time / Inr (Pt) (06/28/17 06:49) Act Partial Throm Time (Ptt) (06/28/17 06:49) Troponin I (06/28/17 06:49) Ecg Monitoring (06/28/17 06:49) Bilateral Bp Monitoring (06/28/17 06:49) Iv Access Insert/Monitor (06/28/17 06:49) Oximetry (06/28/17 06:49) Oxygen Administration (06/28/17 06:49) Aspirin Chew (Aspirin Chew) (06/28/17 07:00) Sodium Chloride 0.9% Flush (Ns Flush) (06/28/17 07:00) Chest, Pa & Lat (06/28/17 06:49) Sodium Chlor 0.9% 1000 Ml Inj (Ns 1000 M (06/28/17 07:00) Verapamil Inj (Isoptin Inj) (06/28/17 07:00) Pantoprazole Inj (Protonix Inj) (06/28/17 07:00) Labs Laboratory Tests Test 5/21/18 06:50 [facility] Medical Decision Making Medical Screen Exam Complete: Yes Emergency Medical Condition: Yes Medical Record Reviewed: Yes Interpretation(s) EKG atrial fibrillation with rapid ventricular rate [address] elevation or injury pattern Differential Diagnosis Arrhythmia atrial fibrillation RVR ACS AK electrolyte disturbance holiday heart Narrative Course Patient placed on traffic monitor specialist with continuous pulse oximetry IV access obtained specimens collected and sent for resulting EKG performed shows atrial fibrillation with rapid ventricular response no acute ST elevation or injury pattern rate of 138; patient given bolus of normal saline has already taken aspirin and verapamil 2.5 mg IV ordered as a one-time dose. Vagal maneuvers were attempted without success. Patient reports regurgitation reflux consistent with his history of heartburn given Protonix 40 mg IV patient denies chest pain At 7:10 AM care signed over to oncoming physician Dr. Carol Dumont,Phuong Gaspar MD June 28, 2017 07:11
[2017-06-28 07:12] LABS: CALCIUM 8.8 MG/DL (8.5-10.1)
[2017-06-28 07:13] LABS: BICARBONATE 23.5 MEQ/L (21.0-32.0); BLOOD UREA NITROGEN 20 MG/DL (7-18); GLUCOSE,RANDOM 117 MG/DL (74-106); MAGNESIUM 2.3 MG/DL (1.5-2.5)
[2017-06-28 07:14] LABS: PROTHROMBIN TIME - PATIENT 9.8 SEC (9.8-11.6)
[2017-06-28 07:16] LABS: CREATININE 0.79 MG/DL (0.60-1.30); GLOMERULAR FILTRATION RATE 103 ML/MIN (>89)
[2017-06-28 07:24] LABS: TROPONIN I LESS THAN 0.02 NG/ML (0.02-0.05)
--- NOTE | 2017-06-28 07:52 | RADRPT ---
EXAM DATE/TIME: 06/28/2017 07:43 [facility] COMPARISON: No previous studies available for comparison. INDICATIONS : Chest pain. MEDICAL HISTORY : None. SURGICAL HISTORY : None. ENCOUNTER: Initial ACUITY: 1 day PAIN SCORE: 4/10 LOCATION: Bilateral chest FINDINGS: PA and lateral views of the chest demonstrate the lungs to be symmetrically aerated without evidence of mass, infiltrate or effusion. The cardiomediastinal contours are unremarkable. Osseous structure s are intact except remote right clavicle fracture. CONCLUSION: 1. No active disease. Old right distal clavicle fracture. Robert Noriega MD on June 28, 2017 at 7:49 Board Certified Radiologist. This report was verified electronically.
--- NOTE | 2017-06-28 07:56 | EKG ---
Date Performed: 06/28/2017 Time Performed: 06:45:57 PTAGE: 52 years EKG: ATRIAL FIBRILLATION WITH RAPID VENTRICULAR RESPONSE NONSPECIFIC ST & T-WAVE ABNORMALITY ABN ORMAL RHYTHM ECG PREVIOUS TRACING : 06/09/2017 09.05 No significant change from previous tracing noted. DOCTOR: Prasanth Ramirez Interpretating Date/Time 06/28/2017 07:54:45
[2017-06-28] MEDS ORDERED: DILTIAZEM HCL 30 MG TAB PO ONE (08:00)
--- NOTE | 2017-06-28 08:09 | PD ---
HPI Chief Complaint: Palpitations Time Seen by Provider: 09:02 Travel History International Travel<30 days: No Contact w/Intl Traveler<30days: No Traveled to known affect area: No History of Present Illness HPI This 52-year-old male is complaining of palpitations. He has had recurrent bouts of atrial fibrillation. He does not tolerate medications very well. He says he cannot take beta blockers because they make him short of breath. He has been on Cardizem in the past but he says it is made his heart rate slow. Because of his intolerance to medications Dr. Weldon has done an ablation on him several months ago. He has had a couple of recurrences of atrial fibrillation since then associated with drinking cold fluids. He says that last night he had 3 beers and had some indigestion. He had a coughing spell and says he was put him into atrial fibrillation. He is not on any medications for his atrial fibrillation now. In the past he has been on Cardizem as well as Xarelto. He says he could not tolerate Eliquis. PFSH Past Medical History Hx Anticoagulant Therapy: Yes Atrial Fibrillation: Yes Cancer: No Cardiac Catheterization: Yes Cardiovascular Problems: Yes (hx of a-fib) Diminished Hearing: No Endocrine: No Gastrointestinal Disorders: Yes (REFLUX) GERD: Yes Genitourinary: No Immune Disorder: No Implanted Vascular Access Dvce: No Musculoskeletal: No Neurologic: No Psychiatric: No Reproductive: No Respiratory: No Tetanus Vaccination: > 5 Years Influenza Vaccination: No Past Surgical History Cardiac Surgery: Yes (Heart ablation 03/2017) Other Surgery: Yes (ablation for afib) Social History Alcohol Use: Yes (2-3 beers/week) Tobacco Use: No Substance Use: No Allergies-Medications (Allergen,Severity, Reaction): Coded Allergies: shellfish derived (Unverified Allergy, Intermediate, VOMITING, 06/09/17) Reported Meds & Prescriptions Reported Meds & Active Scripts Active Xarelto (Rivaroxaban) 20 Mg Tab 20 Mg PO DAILY 30 Days Cardizem (Diltiazem HCl) 30 Mg Tab 30 Mg PO QID Reported Aspirin 325 Mg Tab 650 Mg PO ONCE Review of Systems General / Constitutional: No: Fever, Chills Eyes: No: Diploplia, Blurred Vision HENT: No: Headaches Cardiovascular: Positive: Palpitations Gastrointestinal: Positive: Indigestion Genitourinary: No: Urgency, Frequency Musculoskeletal: No: Myalgias, Arthralgias Skin: No Rash, No Itching Psychiatric: No: Anxiety Endocrine: No: Cold Intolerance Hematologic/Lymphatic: No: Easy Bruising Physical Exam Narrative GENERAL: Well-developed male SKIN: Focused skin assessment warm/dry. HEAD: Atraumatic. Normocephalic. EYES: Pupils equal and round. No scleral icterus. No injection or drainage. ENT: No nasal bleeding or discharge. Mucous membranes pink and moist. NECK: Trachea midline. No JVD. CARDIOVASCULAR: Rapid irregular rate and rhythm. No murmur appreciated. RESPIRATORY: No accessory muscle use. Clear to auscultation. Breath sounds equal bilaterally. GASTROINTESTINAL: Abdomen soft, non-tender, nondistended. Hepatic and splenic margins not palpable. MUSCULOSKELETAL: No obvious deformities. No clubbing. No cyanosis. No edema. NEUROLOGICAL: Awake and alert. No obvious cranial nerve deficits. Motor grossly within normal limits. Normal speech. PSYCHIATRIC: Appropriate mood and affect; insight and judgment normal. Data Data Last Documented VS Vital Signs Date Time Temp Pulse Resp B/P (MAP) Pulse Ox O2 Delivery O2 Flow Rate FiO2 06/28/17 08:55 78 14 141/89 (106) 96 Room Air 06/28/17 06:46 97.7 Orders Orders Electrocardiogram (06/28/17 06:49) Basic Metabolic Panel (Bmp) (06/28/17 06:49) Ckmb (Isoenzyme) Profile (06/28/17 06:49) Complete Blood Count With Diff (06/28/17 06:49) Magnesium (Mg) (06/28/17 06:49) Prothrombin Time / Inr (Pt) (06/28/17 06:49) Act Partial Throm Time (Ptt) (06/28/17 06:49) Troponin I (06/28/17 06:49) Ecg Monitoring (06/28/17 06:49) Bilateral Bp Monitoring (06/28/17 06:49) Iv Access Insert/Monitor (06/28/17 06:49) Oximetry (06/28/17 06:49) Oxygen Administration (06/28/17 06:49) Aspirin Chew (Aspirin Chew) (06/28/17 07:00) Sodium Chloride 0.9% Flush (Ns Flush) (06/28/17 07:00) Chest, Pa & Lat (06/28/17 06:49) Sodium Chlor 0.9% 1000 Ml Inj (Ns 1000 M (06/28/17 07:00) Verapamil Inj (Isoptin Inj) (06/28/17 07:00) Pantoprazole Inj (Protonix Inj) (06/28/17 07:00) CKMB (06/28/17 06:50) CKMB% (06/28/17 06:50) Diltiazem (Cardizem) (06/28/17 08:00) Rivaroxaban (Xarelto) (06/28/17 08:15) Al-Mag Hy-Si 40-40-4 Mg/Ml Liq (Mag-Al P (06/28/17 09:00) Labs Laboratory Tests Test 06/28/17 06:50 White Blood Count 8.5 TH/MM3 Red Blood Count 4.91 MIL/MM3 Hemoglobin 14.6 GM/DL Hematocrit 44.0 % Mean Corpuscular Volume 89.6 FL Mean Corpuscular Hemoglobin 29.7 PG Mean Corpuscular Hemoglobin Concent 33.2 % Red Cell Distribution Width 12.4 % Platelet Count 251 TH/MM3 Mean Platelet Volume 9.0 FL Neutrophils (%) (Auto) 52.2 % Lymphocytes (%) (Auto) 36.5 % Monocytes (%) (Auto) 6.7 % Eosinophils (%) (Auto) 3.9 % Basophils (%) (Auto) 0.7 % Neutrophils # (Auto) 4.4 TH/MM3 Lymphocytes # (Auto) 3.1 TH/MM3 Monocytes # (Auto) 0.6 TH/MM3 Eosinophils # (Auto) 0.3 TH/MM3 Basophils # (Auto) 0.1 TH/MM3 CBC Comment DIFF FINAL Differential Comment Prothrombin Time 9.8 SEC Prothromb Time International Ratio 1.0 RATIO Activated Partial Thromboplast Time 26.8 SEC Blood Urea Nitrogen 20 MG/DL Creatinine 0.79 MG/DL Random Glucose 117 MG/DL Calcium Level 8.8 MG/DL Magnesium Level 2.3 MG/DL Sodium Level 139 MEQ/L Potassium Level 4.1 MEQ/L Chloride Level 111 MEQ/L Carbon Dioxide Level 23.5 MEQ/L Anion Gap 5 MEQ/L Estimat Glomerular Filtration Rate 103 ML/MIN Total Creatine Kinase 149 U/L Creatine Kinase MB 0.7 NG/ML Troponin I LESS THAN 0.02 NG/ML MDM Medical Decision Making Medical Screen Exam Complete: Yes Emergency Medical Condition: Yes Medical Record Reviewed: Yes Differential Diagnosis Differential includes recurrent atrial fibrillation Narrative Course EKG shows atrial fibrillation. He was given verapamil which really had no effect on his heart rate. I discussed the case with Dr. Weldon who is the patient 's chain repairer. He recommends that we initiate Cardizem 30 mg every 6 hours and Xarelto. He will follow the patient up as an outpatient. Patient was given 30 mg of Cardizem orally. He was being observed in the ER and he has converted to sinus rhythm. He has an appointment on July [address] Weldon.. Diagnosis Primary Impression: Atrial fibrillation Referrals: Angel Weldon MD Scripts Rivaroxaban (Xarelto) 20 Mg Tab 20 MG PO DAILY for Blood Clot Prevention for 30 Days, #30 TAB 0 Refills Prov: Shabbir Hercules MD 06/28/17 Diltiazem (Cardizem) 30 Mg Tab 30 MG PO QID for Angina, #120 TAB 0 Refills Prov: Shabbir Hercules MD 06/28/17 Disposition: 01 DISCHARGE HOME Condition: Stable Shabbir Hercules MD June 28, 2017 08:09
[2017-06-28] MEDS ORDERED: RIVAROXABAN 20 MG TAB PO ONE (08:15)
[2017-06-28] MEDS ORDERED: DILT31TA PO (08:54)
[2017-06-28] MEDS ORDERED: XARE20TA PO (08:54)
[2017-06-28] MEDS ORDERED: ALUMINUM/MAGNESIUM/SIMETH 30 ML CUP PO ONE (09:00)
== END 2017-06-28 08:10 | disposition home or self-care (01) ==
LOC: PHED 06:36
DX: I48.91 Unspecified atrial fibrillation (principal); K21.9 Gastro-esophageal reflux disease without esophagitis; Z79.01 Long term (current) use of anticoagulants; Z87.891 Personal history of nicotine dependence
CPT/HCPCS: 71046; 80048; 82550; 82552; 83735; 84484; 85025; 85610; 85730; 93005; 96361; 96374; 96375; 99285; C9113; J7030

== ENCOUNTER 2018-02-10 03:43 | Observation (INO) ==
[2018-02-10 03:55] VITALS: TEMP 98.7; O2SAT 98
--- NOTE | 2018-02-10 03:56 | ED ---
HPI General Chief Complaint: Arrhythmia / Palpitations Stated Complaint: arrhythmia Time Seen by Provider: 02/10/18 03:50 Source: patient Mode of arrival: ambulatory Limitations: no limitations History of Present Illness complaint: Reports rapid heart beat, "heart racing", palpitations, irregular heart beat and atrial fibrillation Onset (ago): hour(s) (4) Time: 23:30 Duration: constant Severity: similar to previous episodes Context: Reports occurred during rest (after drinking a cold beverage); Denies occurred during exertion, AICD discharge, awoke with symptoms, recent drug use and change in medication Arrhythmia history: Reports atrial fibrillation and history of ablation (03/2017) ; Denies SVT, on anti-coagulants, pacemaker, AICD and history of electrical cardioversion Associated symptoms: Reports shortness of breath; Denies chest pain, syncope, near-syncope, nausea, vomiting, anxiety, diaphoresis, cough, paresthesias, feeling of impending doom and muscle cramps Treatments prior to arrival: Reports vagal maneuvers; Denies propafenone, beta- clayton, calcium channel clayton, adenosine, amiodarone and cardioversion Related Data Home Medications Medication Instructions Recorded Confirmed ascorbic acid (vitamin C) [Vitamin 3,000 mg PO DAILY 11/02/17 02/10/18 C] coenzyme Q10 [Co Q-10] 60 mg PO DAILY 11/02/17 02/10/18 omega 2-vgk-gte-fish oil [Fish Oil] 3,600 mg PO DAILY 11/02/17 02/10/18 vitamin B complex 1 cap PO DAILY 11/02/17 02/10/18 Allergies Allergy/AdvReac Type Severity Reaction Status Date / Time shellfish derived Allergy Intermediate Anaphylaxis Verified 02/10/18 03:56 Review of Systems ROS: all other systems reviewed are negative [facility] Medical History Medical History Atrial fibrillation (Acute) Surgical History Surgical History History of cardiac radiofrequency ablation (Acute) Social History Social History Substance History: No History of Abuse Second Hand Smoke Exposure: No Smoking Status: Former smoker Tobacco Type: Cigarettes How Often Do You Have a Drink Containing Alcohol: Monthly or less Recent Travel in [facility] within the Last 8 Weeks: No Recent Out of Country Travel within the Last 8 Weeks: No Exam Narrative Exam Narrative: GENERAL: Well-nourished, well-developed patient. SKIN: Focused skin assessment warm/dry. HEAD: Normocephalic. EYES: No scleral icterus. No injection or drainage. NECK: Supple, trachea midline. No JVD or lymphadenopathy. CARDIOVASCULAR: Increased irregularly irregular rate and rhythm without murmurs , gallops, or rubs. Bilateral radial and dorsalis pedis pulses 2+ to palpation. RESPIRATORY: Breath sounds equal bilaterally. No accessory muscle use. GASTROINTESTINAL: Abdomen soft, non-tender, nondistended. MUSCULOSKELETAL: No cyanosis, or edema. BACK: Nontender without obvious deformity. No CVA tenderness. Course Initial Documented Vital Signs Temperature 98.7 F 02/10/18 03:52 Pulse Rate 117 H 02/10/18 03:52 Respiratory Rate 18 02/10/18 03:52 Blood Pressure 135/81 02/10/18 03:52 Pulse Oximetry 98 02/10/18 03:52 Last Documented Vital Signs Temperature 98.7 F 02/10/18 03:52 Pulse Rate 103 H 02/10/18 05:32 Respiratory Rate 16 02/10/18 05:32 Blood Pressure 105/50 L 02/10/18 05:32 Pulse Oximetry 98 02/10/18 05:32 Medical Decision Making [facility] Narrative Medical decision making narrative: 52-year-old male with prior history of atrial fibrillation status post ablation in March 2017 has done well on no medications had been told by his crib clerk to not drink cold beverages and around 11:30 PM Wednesday evening during a cold diet Pepsi and shortly thereafter felt palpitations and has subsequently been in a rapid irregular regular rhythm since that time. No near syncope no syncope no chest pain no sweats no nausea no vomiting no referred neck jaw back shoulder arm pain but has had shortness of breath. Patient also complains of feeling fatigued as he has been having symptoms for approximately 4 hours. Patient denies any known thyroid disease and does not take caffeine or consume caffeine on a regular basis. Patient attempted vagal maneuvers without relief. Patient presents now for further evaluation. Failed vagal maneuvers. Patient placed on director of cardiac rehabilitation with continuous pulse oximetry IV access obtained specimens collected and sent for resulting patient administered 0.25 mg /kg of IV diltiazem and infusion ordered Rate controlled the patient remains in atrial fibrillation Initial EKG atrial fibrillation with rapid ventricular rate of 125 without injury pattern change noted Lab values grossly normal range troponin I less than 0.0 to have a patient is noted to have abnormal thyroid function discussed with [facility] service for admission Medical Screen Exam Complete: Yes Emergency Medical Condition: Yes Differential Diagnosis Differential Diagnosis: Palpitations, atrial fibrillation with RVR, electrolyte disturbance, thyroid dysfunction, ACS, [place] Medical Records Medical records reviewed: Yes I reviewed the patient's medical records. Lab Data Result diagrams: 02/10/18 04:00 02/10/18 04:00 Lab Results 02/10/18 02/10/18 02/10/18 Range/Units 04:00 04:00 04:00 CBC w Diff Auto diff final WBC 9.4 (4.0-11.0) th/mm3 RBC 5.01 (4.50-5.90) mil/mm3 Hgb 15.4 (13.0-17.0) gm/dL Hct 45.3 (39.0-51.0) % MCV 90.3 (80.0-100.0) fL MCH 30.7 (27.0-34.0) pg MCHC 34.0 (32.0-36.0) % RDW 12.1 (11.6-17.2) % Plt Count 263 (150-450) th/mm3 MPV 9.0 (7.0-11.0) fL Neut % (Auto) 58.6 (16.0-70.0) % Lymph % (Auto) 32.4 (9.0-44.0) % [place] % (Auto) 6.0 (0.0-8.0) % Eos % (Auto) 1.9 (0.0-4.0) % Baso % (Auto) 1.1 (0.0-2.0) % Neut # (Auto) 5.5 (1.8-7.7) th/mm3 Lymph # (Auto) 3.0 (1.0-4.8) th/mm3 [place] # (Auto) 0.6 (0.0-0.9) th/mm3 Eos # (Auto) 0.2 (0.0-0.4) th/mm3 Baso # (Auto) 0.1 (0.0-0.2) th/mm3 WBC Differential . Differential Comment . Sodium 139 (136-145) meq/L Potassium 3.8 (3.5-5.1) meq/L Chloride 109 H (98-107) meq/L Carbon Dioxide 22.7 (21.0-32.0) meq/L Anion Gap 7 (5-15) meq/L BUN 21 H (7-18) mg/dL Creatinine 0.93 (0.60-1.30) mg/dL Estimated GFR 86 L (>89) mL/min Random Glucose 97 (74-106) mg/dL Calcium 8.4 L (8.5-10.1) mg/dL Magnesium 2.3 (1.5-2.5) mg/dL Troponin I Less than 0.02 L (0.02-0.05) ng/mL TSH 6.170 H (0.358-3.740) uIU/mL ECG Data EKG Prior to Arrival: No Attestation: I personally reviewed and interpreted this ECG as follows: (EKG: Atrial fibrillation with rapid ventricular rate of [address] elevation or injury pattern noted) Discharge Plan Discharge Disposition Patient Disposition: ED Admit(ED Internal Use Only) Discharge Condition Condition: Stable Discharge Order Discharge Orders: ED Use Only Admit Order (Routine); Ordered 02/10/18 Ordered By: Phuong Dumont Discharge Details Diagnosis: Atrial fibrillation with rapid ventricular response, Thyroid disease Physicians Team ED Provider: Phuong Dumont Primary Care Provider: Barry Buckley Rxs /Orders / Referrals /Forms Prescriptions: No Action ascorbic acid (vitamin C) [Vitamin C] 1,000 mg Tablet 3,000 mg PO DAILY RF: 0 coenzyme Q10 [Co Q-10] 50 mg Capsule 60 mg PO DAILY RF: 0 vitamin B complex Capsule 1 cap PO DAILY RF: 0 omega 0-eng-yzt-fish oil [Fish Oil] 1,000 mg (120 mg-180 mg) Capsule 3,600 mg PO DAILY RF: 0 Status ED Status: With Doctor
[2018-02-10] MEDS ORDERED: Sod Chloride 0.9% Inj 1,000 ML IV.CONT SCH (04:00)
[2018-02-10 04:19] LABS: Baso # (Auto) 0.1 th/mm3 (0.0-0.2); Baso % (Auto) 1.1 % (0.0-2.0); Eos # (Auto) 0.2 th/mm3 (0.0-0.4); Eos % (Auto) 1.9 % (0.0-4.0); Hematocrit 45.3 % (39.0-51.0); Hemoglobin 15.4 gm/dL (13.0-17.0); Lymph % (Auto) 32.4 % (9.0-44.0); Mean Corpuscular Hemoglobin 30.7 pg (27.0-34.0); Mean Corpuscular Volume 90.3 fL (80.0-100.0); Mono # (Auto) 0.6 th/mm3 (0.0-0.9); Neut # (Auto) 5.5 th/mm3 (1.8-7.7); Neut % (Auto) 58.6 % (16.0-70.0); Platelet Count 263 th/mm3 (150-450); Red Blood Count 5.01 mil/mm3 (4.50-5.90); Red Cell Distribution Width 12.1 % (11.6-17.2); White Blood Count 9.4 th/mm3 (4.0-11.0)
[2018-02-10 04:30] LABS: Potassium 3.8 meq/L (3.5-5.1)
[2018-02-10 04:32] LABS: Calcium 8.4 mg/dL (8.5-10.1)
[2018-02-10 04:33] LABS: Carbon Dioxide 22.7 meq/L (21.0-32.0); Magnesium 2.3 mg/dL (1.5-2.5)
[2018-02-10] MEDS ORDERED: dilTIAZem Inj 125 MG in Sodium Chlor 0.9% Inj 100 ML IV.CONT PRN ×2 (04:33→05:16)
[2018-02-10 05:33] VITALS: RESP 16
[2018-02-10] MEDS ORDERED: Sod Chloride 0.9% Inj 1,000 ML IV.SIG SCH (06:00)
[2018-02-10] MEDS ORDERED: Bisacodyl 10 MG Supp RECTAL PRN (06:21)
[2018-02-10] MEDS ORDERED: Acetaminophen 325 MG Tablet PO PRN (06:21)
[2018-02-10] MEDS ORDERED: Enoxaparin Inj 40 MG/0.4 ML Syringe SQ SCH (09:00)
[2018-02-10 09:13] VITALS: BP 133/87; PULSE 75
--- NOTE | 2018-02-10 13:54 | ECG ---
Date Performed: 02/10/2018 Time Performed: 03:59:48 PTAGE: 52 years EKG: ATRIAL FIBRILLATION WITH RAPID VENTRICULAR RESPONSE ABNORMAL RHYTHM ECG Compared to PREVIOUS TRACING , the patient has developed atrial fibrillation with a rapid ventricular response. PREVIOUS TRACIN11/02/2017 13.15 DOCTOR: Purnima Reed Interpretating Date/Time 02/10/2018 13:53:00
== END 2018-02-20 09:20 | disposition left against medical advice (07) ==
LOC: PHED 03:43 → PHEDA 03:43
PROVIDERS: ADMIT Internal Medicine; ATTEND Internal Medicine
CPT/HCPCS: 80048; 83735; 84443; 84484; 85025; 90761; 90765; 90766; 90775; 93005; 96361; 96365; 96366; 96375; 99285; G0378; J7030